=== PATIENT | male | born 1960 | race Caucasian/White ===

== ENCOUNTER 2019-05-21 16:53 | Inpatient (IN) | payer OTHER ==
[~2019-05-21] VITALS: Ht 182.9 cm; Wt 102.5 kg
--- NOTE | 2019-05-21 17:15 | NUR ---
RECEIVED PATIENT DIRECT ADMIT FROM [facility], TRANSPORT BY financial aid advisor. PATIENT IS A/OX4, ABLE TO MAKE NEEDS KNOWN. AMBULATORY, AMBULATE FROM GURNEY TO BED. DIAGNOSIS OF CHOLECYSTITIS. NOT IN ANY FORM OF DISTRESS. RESPIRATIONS EVEN AND UNLABORED, TOLERATING ROOM AIR SATTING 96%. DENIES ABDOMINAL PAIN AT THIS TIME, PAIN MEDS GIVEN AT [facility] AT DISCHARGE. IV ACCESS LEFT AC GAUGE 20, INTACT AND PATENT. ORIENTED PATIENT TO THE ROOM. TAUGHT HIM HOW TO USE THE CALL LIGHT AND INSTRUCTED TO CALL FOR ASSISTANCE. NEEDS ATTENDED. SAFETY MEASURES IN PLACE. BELONGINGS CHECKED BY MIRIAN WOODSON AND NOTED IN THE BELONGINGS FORM. PER PATIENT, HE HAS NO WOUNDS. REFUSED BODY CHECK. BED IN LOW/LOCKED POSITION, SIDERAILS UPX2, CALL LIGHT IN REACH. WILL CONTINUE TO MONIOTR ACCORDINGLY.
[2019-05-21] MEDS ORDERED: IV D5/0.45 NACL 1,000 ML IV PRN (17:16)
[2019-05-21 17:30] VITALS: BP 127/78
[2019-05-21] MEDS ORDERED: MAG HYDROX/AL HYDROX/SIMETH 30 ML UDC PO PRN (17:30)
[2019-05-21] MEDS ORDERED: Z GUARD REMEDY 2 OZ OINT TP PRN (17:30)
[2019-05-21] MEDS ORDERED: ACETAMINOPHEN 325 MG TABLET PO PRN (17:30)
[2019-05-21] MEDS ORDERED: ONDANSETRON HCL/PF 4 MG/2 ML VIAL IVP PRN (17:30)
[2019-05-21] MEDS ORDERED: MAGNESIUM HYDROXIDE 30 ML UDC PO PRN (17:30)
[2019-05-21] MEDS ORDERED: MORPHINE SULFATE INJ 2 MG/ML DISP.SYRIN IV PRN (17:30)
[2019-05-21 18:10] LABS: BASOPHILS # (AUTO) 0.3 /CMM (0.0-0.2); BASOPHILS % (AUTO) 2.3 % (0.0-2.0); EOSINOPHILS % (AUTO) 0.2 % (0.0-6.0); HEMATOCRIT 43 % (39-51); HEMOGLOBIN 14.3 g/dL (13.5-17.5); MEAN CORPUSCULAR HGB CONC 34 g/dl (31.0-36.0); MEAN CORPUSCULAR VOLUME 91 fL (80-96); MONOCYTES # (AUTO) 0.7 /CMM (0.1-1.30); MONOCYTES % (AUTO) 6.2 % (2.0-12.0); NEUTROPHILS # (AUTO) 8.9 /CMM (1.8-8.9); NEUTROPHILS % (AUTO) 82.3 % (43.0-81.0); PLATELET COUNT (AUTO) 205 /CMM (150-450); WHITE BLOOD COUNT (AUTO) 10.8 K/uL (4.3-11.0)
[2019-05-21 18:23] LABS: ALBUMIN 3.6 g/dL (3.4-5.0); BILIRUBIN,TOTAL 0.7 mg/dL (0.2-1.0); CALCIUM, SERUM 8.4 mg/dL (8.5-10.1); CREATININE 0.9 mg/dL (0.6-1.3); MAGNESIUM 1.7 mg/dL (1.8-2.4); POTASSIUM 3.9 mmol/L (3.5-5.1); TOTAL PROTEIN, SERUM 6.9 g/dL (6.4-8.2)
[2019-05-21 18:33] LABS: ALBUMIN 3.6 g/dL (3.4-5.0); BILIRUBIN,DIRECT 0.2 mg/dL (0.0-0.2); BILIRUBIN,TOTAL 0.7 mg/dL (0.2-1.0); TOTAL PROTEIN, SERUM 6.8 g/dL (6.4-8.2)
--- NOTE | 2019-05-21 18:35 | NUR ---
CONSENT FOR HIDA SCAN SIGNED BY PATIENT
--- NOTE | 2019-05-21 19:05 | NUR ---
MS RN NOTES RECEIVED PT IN BED AWAKE AND ABLE TO MAKE NEEDS KNOWN. PT A/O X3. RESPIRATIONS EVEN AND UNLABORED WITH NO S/S OF ACUTE DISTRESS OR SOB NOTED. NO COMPLAINTS OF PAIN AT THIS TIME. PT AWAITING HIDA SCAN. SAFETY MEASURES IN PLACE WITH BED IN LOWEST LOCKED POSITION WITH SIDE RAILS UP X2. CALL LIGHT WITHIN REACH. WILL CONTINUE TO MONITOR.
--- NOTE | 2019-05-21 19:12 | NUR ---
RN CLOSING NOTES PATIENT IN STABLE CONDITION. ALL NEEDS ATTENDED AND PROVIDED. FOR HIDA SCAN TONIGHT, KEPT NPO. KEPT PATIENT SAFE AND COMFORTABLE. BED IN LOW/LOCKED POSTION, SIDERAILS UPX2, CALL LIGHT IN REACH. ENDORSED TO ELIOT BALDERAS FOR LIZZIE.
--- NOTE | 2019-05-21 19:50 | NUR ---
MS RN NOTES PT LEFT UNIT FOR HIDA SCAN.
[2019-05-21 20:00] VITALS: BP 128/70
[2019-05-21 20:40] LABS: LYMPHOCYTES % (MANUAL) 20 % (16-48); MONOCYTES % (MANUAL) 2 % (0-11.0); NEUTROPHILS % (MANUAL) 78 (42-76)
--- NOTE | 2019-05-21 21:15 | NUR ---
MS RN NOTES PT ARRIVED BACK ONTO UNIT FROM HIDA SCAN.
[2019-05-21] MEDS: METRONIDAZOLE 500MG/ NS 100ML 500 MG in PREMIX 1 EA IV SCH (21:31)
--- NOTE | 2019-05-21 23:10 | NUR ---
MS RN NOTES PT LEFT UNIT TO FINISH HIDA SCAN.
--- NOTE | 2019-05-21 23:26 | NUR ---
MS RN NOTES PT ARRIVED BACK ONTO UNIT FROM HIDA SCAN.
[2019-05-22] MEDS: METRONIDAZOLE 500MG/ NS 100ML 500 MG in PREMIX 1 EA IV SCH ×3 (06:03→21:01)
[2019-05-22 06:55] LABS: BASOPHILS % (AUTO) 0.1 % (0.0-2.0); EOSINOPHILS % (AUTO) 1.2 % (0.0-6.0); HEMATOCRIT 42 % (39-51); LYMPHOCYTES # (AUTO) 1.4 /CMM (0.8-4.8); MEAN CORPUSCULAR HGB CONC 34 g/dl (31.0-36.0); MEAN CORPUSCULAR VOLUME 91 fL (80-96); MONOCYTES # (AUTO) 0.6 /CMM (0.1-1.30); MONOCYTES % (AUTO) 7.9 % (2.0-12.0); NEUTROPHILS # (AUTO) 5.4 /CMM (1.8-8.9); NEUTROPHILS % (AUTO) 71.8 % (43.0-81.0); PLATELET COUNT (AUTO) 180 /CMM (150-450); RED BLOOD CELL COUNT(AUTO) 4.58 MIL/uL (4.5-6.0); WHITE BLOOD COUNT (AUTO) 7.5 K/uL (4.3-11.0)
--- NOTE | 2019-05-22 06:55 | NUR ---
MS RN NOTES PT IN BED AWAKE AND ABLE TO MAKE NEEDS KNOWN. PT A/O X3. RESPIRATIONS EVEN AND UNLABORED WITH NO S/S OF ACUTE DISTRESS OR SOB NOTED THROUGHOUT SHIFT. NO COMPLAINTS OF PAIN AT THIS TIME. PT WITH LAC #20G PATENT AND INTACT INFUSING D5 1/2 NS @75 ML/HR. SAFETY MEASURES IN PLACE WITH BED IN LOWEST LOCKED POSITION WITH SIDE RAILS UP X2. CALL LIGHT WITHIN REACH. WILL ENDORSE TO ONCOMING NURSE FOR LIZZIE.
--- NOTE | 2019-05-22 07:23 | NUR ---
RN OPENING NOTE PT WAS RECEIVED IN BED AT LOWEST AND LOCKED POSITION WITH SIDE RAILS UP X2, A/O X3 BREATHING EVEN AND UNLABORED WITH NO S/S OF ANY DISTRESS AT THIS TIME, IV IS PATENT AND INTACT, HIDA SCAN RESULTS RELAYED TO PAINTER ROUGH VERONIKA RODRIGUEZ PER NIGHT RN, CURRENTLY NPO, SAFETY PRECAUTIONS IN PLACE, CALL LIGHT IN REACH, WILL MONITOR ACCORDINGLY
[2019-05-22 07:33] LABS: THYROID STIMULATING HORMONE 1.067 uIU/mL (0.358-3.74)
[2019-05-22 07:47] LABS: CALCIUM, SERUM 8.2 mg/dL (8.5-10.1); CREATININE 0.9 mg/dL (0.6-1.3); MAGNESIUM 1.8 mg/dL (1.8-2.4); PHOSPHORUS 3.6 mg/dL (2.5-4.9); POTASSIUM 3.9 mmol/L (3.5-5.1)
[2019-05-22 08:00] VITALS: BP 123/73
[2019-05-22] MEDS: CEFTRIAXONE 1 G in IV D5W 50 ML IV SCH (08:20)
[2019-05-22] MEDS: PANTOPRAZOLE 40 MG VIAL IV SCH (08:20)
--- NOTE | 2019-05-22 13:20 | NUR ---
RN NOTE INFORMED BY INTERNAL AUDIT SENIOR MANAGER DIANE PT SCHEDULED FOR [facility] AT 3 PM TODAY, PT INFORMED OF PROCEDURE WITH CONSENTS SIGNED AND CHECKLIST DONE, EKG ORDERED, WILL CONTINUE TO MONITOR
[2019-05-22] MEDS ORDERED: ANESTHESIA TRAY IN PYXIS 1 EA TRAY MC ONE (14:47)
--- NOTE | 2019-05-22 14:47 | NUR ---
RN NOTE PT TAKEN TO OR AT THIS TIME
[2019-05-22] MEDS ORDERED: BUPIVACAINE MPF 0.5% W/EPI INJ 30 ML VIAL ONE (14:48)
[2019-05-22] MEDS ORDERED: LIDOCAINE HCL/MPF 1% 30 ML VIAL IJ ONE (14:48)
[2019-05-22] MEDS ORDERED: MIDAZOLAM HCL 2 MG/2ML VIAL ONE ×3 (14:50→15:05)
[2019-05-22] MEDS ORDERED: ROCURONIUM BROMIDE 50 MG/5 ML ONE (14:59)
[2019-05-22] MEDS ORDERED: SCOPOLAMINE HBR 1 EA PATCH.TD72 TD ONE (14:59)
[2019-05-22] MEDS ORDERED: FENTANYL PF 100MCG/2ML AMPUL ONE (15:00)
[2019-05-22] MEDS ORDERED: DESFLURANE 240 ML BOTTLE IH ONE (16:09)
[2019-05-22] MEDS ORDERED: SEVOFLURANE 250 ML BOTTLE IH ONE (16:09)
--- NOTE | 2019-05-22 17:14 | NUR ---
RN NOTE PT BROUGHT BACK FROM OR AT THIS TIME
[2019-05-22 17:20] VITALS: BP 128/70
[2019-05-22] MEDS ORDERED: HYDROMORPHONE 1 MG/1 ML DISP.SYRIN IV PRN (17:30)
[2019-05-22] MEDS ORDERED: ONDANSETRON HCL/PF 4 MG/2 ML VIAL IVP PRN (17:30)
[2019-05-22] MEDS ORDERED: HYDROMORPHONE INJ 0.5 MG/0.5 ML SYRINGE IV PRN (17:30)
[2019-05-22] MEDS ORDERED: ACETAMINOPHEN 325 MG TABLET PO SCH ×2 (17:30→21:00)
[2019-05-22] MEDS: IBUPROFEN 400 MG TABLET PO SCH (17:38)
[2019-05-22] MEDS: GABAPENTIN 300 MG CAPSULE PO SCH (17:38)
--- NOTE | 2019-05-22 17:48 | NUR ---
RN NOTE MESSAGE SENT TO REGARDING POST OP ORDER OF ZOYSN SINCE PT IS ALLERGIC TO [facility], AWAITING TO HEAR BACK FROM
[2019-05-22 17:53] VITALS: BP 128/70
[2019-05-22] MEDS: IV LR 1000 ML 1,000 ML IV PRN (17:57)
[2019-05-22] MEDS ORDERED: ZOSYN IVPB 3.375 G in IV D5W 50ml IV SCH (18:00)
--- NOTE | 2019-05-22 18:21 | NUR ---
RN NOTE MESSAGE RECIEVED FROM AT THIS TIME, D/C ZOSYN AND TO JUST CONTINUE PREOP ANTIBIOTICS FOR 24 HOURS, PHARMACY WAS CALLED AND NOTIFIED
--- NOTE | 2019-05-22 18:34 | NUR ---
RN CLOSING NOTE PT IN BED AT LOWEST AND LOCKED POSITION WITH SIDE RAILS UP X2, A/O X3 BREATHING EVEN AND UNLABORED WITH NO S/S OF ANY DISTRESS AT THIS TIME, IV IS PATENT AND INTACT, S/P CHOLECYSTECTOMY, SAFETY PRECAUTIONS IN PLACE, CALL LIGHT IN REACH, ALL NEEDS ATTENDED TO, WILL ENDORSE TO NIGHT RN FOR LIZZIE
--- NOTE | 2019-05-22 19:07 | NUR ---
RN OPENING NOTES RECEIVED PATIENT IN BED WAKE, RESTING. FAMILY AT BED SIDE. A/O X 3. RESPIRATIONS EVEN AND UNLABORED WITH EQUAL RISE AND FALL OF CHEST. IV SITE: LEFT ANTECUBITAL #20g PATENT AND INTACT. PATIENT DENIES ANY PAIN OR DISCOMFORT. S/P CHOLECYSTECTOMY- NO ACTIVE BLEEDING, DRESSINGS INTACT. PATIENT DENIES ANY PAIN OR DISCOMFORT. ALL NEEDS ATTENDED AT THIS TIME. SAFETY PRECAUTIONS IMPLEMENTED; CALL LIGHT WITHIN REACH, BED LOWEST POSITION, BED LOCKED, BILATERAL UPPER SIDE RAILS UP AND LOCKED. WILL CONTINUE TO MONITOR PATIENT.
--- NOTE | 2019-05-22 19:23 | NUR ---
RN OPENING NOTES RECEIVED PATIENT IN BED AWAKE, RESTING. A/O X 4. RESPIRATIONS EVEN AND UNLABORED WITH EQUAL RISE AND FALL OF CHEST. NO IV SITE NOTED. PATIENT DENIES ANY PAIN OR DISCOMFORT AT THIS TIME. ALL NEEDS ATTENDED AT THIS TIME. WILL MAINTAIN ISOLATION PRECAUTIONS. PATIENT HAS OVERBED TRAPEZE AND IS ABLE TO UTILIZE IT. SAFETY PRECAUTIONS IMPLEMENTED; CALL LIGHT WITHIN REACH, BED LOWEST POSITION, BED LOCKED, BILATERAL UPPER SIDE RAILS UP AND LOCKED. WILL CONTINUE TO MONITOR PATIENT. Addendum: 05/23/19 at 0446 by MORALES RAMIREZ RN DISREGARD THIS DOCUMENTATION. NOT FOR MIRIAM ORELLANA.
[2019-05-22 20:00] VITALS: BP_SYST 110; BP_SYST 125; BP_DIAS 61; BP_DIAS 64
[2019-05-22 20:05] VITALS: BP 110/64
[2019-05-22] MEDS ORDERED: GABAPENTIN 300 MG CAPSULE PO SCH (21:00)
[2019-05-22] MEDS ORDERED: IBUPROFEN 800 MG TABLET PO SCH (21:00)
[2019-05-23] MEDS: GABAPENTIN 300 MG CAPSULE PO SCH ×3 (01:31→16:48)
[2019-05-23] MEDS: IBUPROFEN 400 MG TABLET PO SCH ×3 (01:31→16:48)
[2019-05-23] MEDS: METRONIDAZOLE 500MG/ NS 100ML 500 MG in PREMIX 1 EA IV SCH ×3 (05:00→20:41)
--- NOTE | 2019-05-23 06:12 | NUR ---
RN CLOSING NOTES PATIENT IN BED SLEEPING COMFORTABLY, EASILY AROUSABLE TO VOICE. RESPIRATIONS EVEN AND UNLABORED WITH EQUAL RISE AND FALL OF CHEST. IV SITE REMAINS INTACT. PATIENT REFUSED IVF AT TIMES BECAUSE HE WANTS TO AMBULATE AND USE THE REST ROOM FREELY, ONLY FLAGYL IV ACCEPTED WHEN DUE. NO SIGNS OF FACIAL GRIMACING INDICATING PAIN OR DISCOMFORT AT THIS TIME. PATIENT ONLY TOOK SCHEDULED PAIN MEDICATION AND DID NOT COMPLAIN OF PAIN THROUGHOUT THE SHIFT. ALL DUE MEDS GIVEN AND STABLE THROUGHOUT THE SHIFT. PATIENT TOOK THE INITIATIVE TO AMBULATE AROUND THE UNIT: X10 LAPS TOTAL LAST NIGHT WITH , GAIT STEADY. NO ADVERSE EFFECTS. NO ACTIVE BLEEDING NOTED. ALL NEEDS ATTENDED AT THIS TIME. SAFETY PRECAUTIONS IMPLEMENTED; CALL LIGHT WITHIN REACH, BED LOWEST POSITION, BED LOCKED, BILATERAL UPPER SIDE RAILS UP AND LOCKED. WILL CONTINUE TO MONITOR PATIENT AND THEN WILL ENDORSE TO DAYSHIFT NURSE FOR CONTINUITY OF CARE.
[2019-05-23 06:37] LABS: BASOPHILS % (AUTO) 0.2 % (0.0-2.0); EOSINOPHILS % (AUTO) 0.1 % (0.0-6.0); HEMATOCRIT 37 % (39-51); HEMOGLOBIN 12.8 g/dL (13.5-17.5); LYMPHOCYTES % (AUTO) 10.9 % (20.0-44.0); MEAN CORPUSCULAR HGB CONC 35 g/dl (31.0-36.0); MEAN CORPUSCULAR VOLUME 90 fL (80-96); MONOCYTES # (AUTO) 0.5 /CMM (0.1-1.30); MONOCYTES % (AUTO) 5.7 % (2.0-12.0); NEUTROPHILS # (AUTO) 7.4 /CMM (1.8-8.9); NEUTROPHILS % (AUTO) 83.1 % (43.0-81.0); PLATELET COUNT (AUTO) 178 /CMM (150-450); RED BLOOD CELL COUNT(AUTO) 4.12 MIL/uL (4.5-6.0); WHITE BLOOD COUNT (AUTO) 8.8 K/uL (4.3-11.0)
[2019-05-23 07:29] LABS: CALCIUM, SERUM 8.2 mg/dL (8.5-10.1); CREATININE 1.1 mg/dL (0.6-1.3); MAGNESIUM 1.7 mg/dL (1.8-2.4); PHOSPHORUS 4.7 mg/dL (2.5-4.9); POTASSIUM 3.7 mmol/L (3.5-5.1)
--- NOTE | 2019-05-23 07:35 | NUR ---
MS RN OPENING NOTES RECEIVED PATIENT IN BED RESTING COMFORTABLY IN MODERATE HIGH BACK REST. A/O X 4. NOT IN ANY SIGNS OF DISTRESS NOTED AT THIS TIME. IV FLUIDS ON LAC #20 RUNNING AT 150ML/HR. PATENT AND INTACT. SAFETY MEASURES IN PLACE, BED IN LOW LOCKED POSITION WITH SIDE RAILS UP X2. CALL LIGHT WITHIN EASY REACH. WILL CONTINUE TO MONITOR.
[2019-05-23 08:00] VITALS: BP 99/51
[2019-05-23] MEDS: CEFTRIAXONE 1 G in IV D5W 50 ML IV SCH (08:12)
[2019-05-23] MEDS: PANTOPRAZOLE 40 MG VIAL IV SCH (08:13)
[2019-05-23] MEDS: Magnesium 1GM/D5W 100ML PREMIX 100 ML IV SCH ×2 (08:51→09:44)
[2019-05-23] MEDS: IV LR 1000 ML 1,000 ML IV PRN ×2 (15:44→22:41)
[2019-05-23 16:00] VITALS: BP 105/59
--- NOTE | 2019-05-23 18:46 | NUR ---
MS RN CLOSING NOTES PATIENT IN BED RESTING COMFORTABLY IN MODERATE HIGH BACK REST. A/O X 4. NO SIGNS OF DISTRESS NOTED THROUGHOUT THE SHIFT. IV FLUIDS ON LAC #20 RUNNING AT 150ML/HR. PATENT AND INTACT. ALL NURSING NEEDS ATTENDED. SAFETY MEASURES IN PLACE, BED IN LOW LOCKED POSITION WITH SIDE RAILS UP X2. CALL LIGHT WITHIN EASY REACH. WILL ENDORSE TO MINI LAB OPERATOR NURSE FOR LIZZIE.
--- NOTE | 2019-05-23 19:15 | NUR ---
MS RN OPENING PM NOTE BEDSIDE REPORT RECIEVED FROM TARA MCCABE. PATIENT IN CHAIR AT BEDSIDE. A/O X 4. IN NO APPARENT DISTRESSPT DENIES PAIN. PT IS HEPLOCKED PT REFUSING IVF REVIEWED DOCTORS ORDERS WITH PATIENT BUT STILL REFUSING STATING "I AM DRINKING PLENTY OF WATER ON MY OWN I DON'T THINK THE IVF IS NECESSARY." SAFETY MEASURES IN PLACE, BED IN LOW LOCKED POSITION WITH SIDE RAILS UP X2. PT VERBALIZES HE CAN GET TO CALL LIGHT TO CALL IF NECESSARY. REVIEWED PAIN MANAGEMENT PLAN PT VERBALIZED UNDERSTANDING. WILL CONT TO MONITOR.
[2019-05-23 20:00] VITALS: BP 107/71
--- NOTE | 2019-05-23 22:00 | NUR ---
reviewed vte protocol with patient and asked if he would like to wear scd and informed they were used to prevent blood clots after surgery, pt refusing states "I don't think i need to wear them anymore, i have been up and out of bed all day. i even walked the hallway 3 times today. i don't think they will be necessary."
[2019-05-24] MEDS: GABAPENTIN 300 MG CAPSULE PO SCH ×2 (00:32→08:31)
[2019-05-24] MEDS: IBUPROFEN 400 MG TABLET PO SCH ×2 (00:32→08:31)
[2019-05-24] MEDS: METRONIDAZOLE 500MG/ NS 100ML 500 MG in PREMIX 1 EA IV SCH (05:18)
[2019-05-24 07:01] LABS: BASOPHILS % (AUTO) 0.1 % (0.0-2.0); EOSINOPHILS % (AUTO) 2.2 % (0.0-6.0); HEMATOCRIT 37 % (39-51); HEMOGLOBIN 12.7 g/dL (13.5-17.5); LYMPHOCYTES # (AUTO) 1.8 /CMM (0.8-4.8); LYMPHOCYTES % (AUTO) 32.8 % (20.0-44.0); MEAN CORPUSCULAR HGB CONC 34 g/dl (31.0-36.0); MEAN CORPUSCULAR VOLUME 90 fL (80-96); MONOCYTES # (AUTO) 0.4 /CMM (0.1-1.30); MONOCYTES % (AUTO) 7.3 % (2.0-12.0); NEUTROPHILS # (AUTO) 3.2 /CMM (1.8-8.9); NEUTROPHILS % (AUTO) 57.6 % (43.0-81.0); PLATELET COUNT (AUTO) 176 /CMM (150-450); RED BLOOD CELL COUNT(AUTO) 4.12 MIL/uL (4.5-6.0); WHITE BLOOD COUNT (AUTO) 5.6 K/uL (4.3-11.0)
--- NOTE | 2019-05-24 07:10 | NUR ---
RN OPENING NOTES PATIENT RESTING IN BED COMFORTABLY. NOT IN ANY FORM OF DISTRESS. NO SOB. DENIED ANY PAIN AT THIS TIME. IV ACCESS INTACT AND PATENT. NEEDS ATTENDED. SAFETY MEASURES IN PLACE. BED IN LOW/LOCKED POSITION, SIDERAILS UPX2, CALL LIGHT IN REACH. WILL CONT TO MONIOTR ACCORDINGLY.
[2019-05-24 07:52] LABS: CALCIUM, SERUM 8.1 mg/dL (8.5-10.1); MAGNESIUM 1.9 mg/dL (1.8-2.4); PHOSPHORUS 4.3 mg/dL (2.5-4.9); POTASSIUM 3.7 mmol/L (3.5-5.1)
[2019-05-24 08:00] VITALS: BP 116/69
[2019-05-24] MEDS: PANTOPRAZOLE 40 MG VIAL IV SCH (08:29)
[2019-05-24] MEDS: CEFTRIAXONE 1 G in IV D5W 50 ML IV SCH (08:29)
--- NOTE | 2019-05-24 12:31 | NUR ---
RN NOTES PER DR ROUSSEAU, LEAVE THE DRESSING ON IF ITS C/D/I.
--- NOTE | 2019-05-24 12:31 | NUR ---
RN NOTES CALLED DR ROUSSEAU FOR A DISCHARGE CLEARANCE. PER DR ROUSSEAU, PATIENT IS CLEAR FOR DISCHARGE. NO ABX PRESCRIPTIONS NEEDED PER MD, JUST FOLLOWUP IN HIS OFFICE IN 1 WEEK.
--- NOTE | 2019-05-24 12:35 | NUR ---
RN NOTES DR ARON GARRETT AT BEDSIDE DISCUSSED DISCHARGE PLAN AND INSTRUCTIONS TO PATIENT. MD ALSO GAVE AFTER CARE INSTRUCTIONS FOR THE SURGICAL SITE. PATIENT VERBALIZED UNDERSTANDING. PATIENT THANKED DR GARRETT AND STATED "YOU ANSWERED ALL MY QUESTIONS.". ALSO REMINDED PATIENT TO FOLLOW UP WITH DR ROUSSEAU IN ONE WEEK.
[2019-05-24] MEDS ORDERED: METRONIDAZOLE 500 MG TABLET PO SCH (13:00)
--- NOTE | 2019-05-24 14:00 | NUR ---
rn notes surgical dressing clean, dry, and intact. photos taken with dressing on, instructions from MD to not remove the surgical dressing if its c/d/i, MD to change on outpatient follow up in one week.
--- NOTE | 2019-05-24 14:12 | NUR ---
discharged patient in stable condition picked up by , accompanied to the lobby by primary nurse. discharge instruction was given, patient verbalized understanding. all belongings returned. all paperwork forms signed. iv access removed, tip intact. removed name band.
== END 2019-05-24 15:00 | disposition home or self-care (01) | DRG 418 ==
LOC: TELE 16:53 → MED 17:15
PROVIDERS: ADMIT Registered Nurse; ATTEND Nurse Practitioner Acute Care
DX: K80.13 Calculus of gallbladder with acute and chronic cholecystitis with obstruction (principal); K82.1 Hydrops of gallbladder; K43.9 Ventral hernia without obstruction or gangrene; K66.0 Peritoneal adhesions (postprocedural) (postinfection); E66.9 Obesity, unspecified; E83.42 Hypomagnesemia; Z68.30 Body mass index [BMI] 30.0-30.9, adult; K21.9 Gastro-esophageal reflux disease without esophagitis; D64.9 Anemia, unspecified; Z80.3 Family history of malignant neoplasm of breast; Z82.49 Family history of ischemic heart disease and other diseases of the circulatory system; Z83.3 Family history of diabetes mellitus; Z88.0 Allergy status to penicillin; D72.829 Elevated white blood cell count, unspecified
CPT/HCPCS: 36415; 78226; 80048-TC; 80053-TC; 80061-TC; 80076-TC; 82150-TC; 82247-TC; 82248-TC; 83690-TC; 83735-TC; 84100-TC; 84443-TC; 85025-TC; 85730-TC; 87081-TC; 88304-TC; A4216; A9537; C9113; G0378; J0696; J2250; J2543; J2704; J3010; J3475; J3490; J7060; J7120